=== PATIENT | female | born 1990 | race American Indian/Alaskan Native ===

== ENCOUNTER 2017-12-06 10:52 | Emergency (ER) | payer SELFPAY ==
[2017-12-06 11:47] LABS: Basophils % (Auto) 0.4 % (0.0-1.8); Eosinophils # (Auto) 0.1 K/mm3 (0.0-0.4); Eosinophils % (Auto) 2.4 % (0.0-4.3); Hematocrit 37.7 % (30.3-42.9); Hemoglobin 12.3 gm/dl (10.1-14.3); Lymphocytes # (Auto) 2.2 K/mm3 (1.2-5.4); Lymphocytes % (Auto) 36.1 % (13.4-35.0); Mean Corpuscular HGB Conc 33 % (30-34); Mean Corpuscular Hemoglobin 29 pg (28-32); Mean Corpuscular Volume 89 fl (79-97); Monocytes # (Auto) 0.5 K/mm3 (0.0-0.8); Monocytes % (Auto) 8.7 % (0.0-7.3); Platelet Count 225 K/mm3 (140-440); Red Blood Count 4.23 M/mm3 (3.65-5.03); Red Cell Distribution Width 14.1 % (13.2-15.2)
[2017-12-06 11:55] LABS: BUN/Creatinine Ratio 15; Blood Urea Nitrogen 9 mg/dL (7-17); Calcium 9.2 mg/dL (8.4-10.2); Hemolysis Index 8
[2017-12-06 11:56] LABS: INR 0.97 (0.87-1.13); Partial Thromboplastin Time 33.7 Sec. (24.2-36.6)
--- NOTE | 2017-12-06 18:30 | Ultrasound Report ---
FINAL REPORT PROCEDURE: Transabdominal pelvic ultrasound with Doppler imaging. TECHNIQUE: Real-time transabdominal sonography in multiple planes of the pelvis was performed with image documentation. Grayscale, color flow Doppler imaging and velocity spectral waveform analysis of the ovaries was employed (duplex imaging). CPT 58421 and 97967 HISTORY: vaginal bleeding. Miscarriage November 19, 2017. Recently treated for infection. COMPARISON: Transvaginal pelvic ultrasound also performed today. FINDINGS: Report for this exam was generated using images from both the transabdominal scan performed as well as a transvaginal scan also performed today. Uterus is located in the midline measuring 6.9 x 3.6 x 4.1 centimeter. No uterine masses are seen. The endometrial stripe measures 9 millimeters. No fluid or masses are seen in the endometrial canal. No evidence of intrauterine . With Doppler imaging there is increased flow to the endometrium and the myometrium. I cannot exclude residual inflammation from recent miscarriage versus infection. No abscess is identified. Small amount of nonspecific free fluid is seen in the cul-de-sac. Right and left ovaries showed no abnormalities. Right ovary measures 2.4 x 2.2 x 2.3 centimeter. The left ovary measures 3.2 x 1.4 x 2.6 centimeter. No abnormal adnexal masses are seen. Arterial flows visualized in both ovaries with Doppler imaging. Venous flow was not documented. IMPRESSION: There is mild increased flow in the endometrium and myometrium with color Doppler imaging. Uterus otherwise is unremarkable. I cannot exclude residual inflammatory change from recent miscarriage versus infection. No abscess is seen. Uterus and endometrium otherwise are unremarkable. Small amount of nonspecific free fluid is present in the cul-de-sac. Uterus and adnexa otherwise are unremarkable.
--- NOTE | 2017-12-06 18:32 | Ultrasound Report ---
FINAL REPORT PROCEDURE: Transvaginal pelvic ultrasound with Doppler imaging. TECHNIQUE: Real-time transvaginal sonography in multiple planes of the pelvis was performed with image documentation. Grayscale, color flow Doppler imaging and velocity spectral waveform analysis of the ovaries was employed (duplex imaging). CPT 30939 and 36210 HISTORY: vaginal bleeding COMPARISON: Transabdominal pelvic ultrasound also performed today. FINDINGS: Report for this exam was generated using images from both the transabdominal scan performed as well as a transvaginal scan also performed today. Uterus is located in the midline measuring 6.9 x 3.6 x 4.1 centimeter. No uterine masses are seen. The endometrial stripe measures 9 millimeters. No fluid or masses are seen in the endometrial canal. No evidence of intrauterine . With Doppler imaging there is increased flow to the endometrium and the myometrium. I cannot exclude residual inflammation from recent miscarriage versus infection. No abscess is identified. Small amount of nonspecific free fluid is seen in the cul-de-sac. Right and left ovaries showed no abnormalities. Right ovary measures 2.4 x 2.2 x 2.3 centimeter. The left ovary measures 3.2 x 1.4 x 2.6 centimeter. No abnormal adnexal masses are seen. Arterial flows visualized in both ovaries with Doppler imaging. Venous flow was not documented. IMPRESSION: There is mild increased flow in the endometrium and myometrium with color Doppler imaging. Uterus otherwise is unremarkable. I cannot exclude residual inflammatory change from recent miscarriage versus infection. No abscess is seen. Uterus and endometrium otherwise are unremarkable. Small amount of nonspecific free fluid is present in the cul-de-sac. Uterus and adnexa otherwise are unremarkable.
[2017-12-06] MEDS ORDERED: NACL 0.9% 1000 ML 1,000 ML IV ONE (20:50)
[2017-12-06] MEDS ORDERED: MORPHINE IV ONE (20:50)
[2017-12-06] MEDS ORDERED: ZOFRAN IV ONE (20:50)
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
[2017-12-06] MEDS ORDERED: TORADOL IV ONE (21:12)
[2017-12-06 21:52] LABS: Bilirubin,Urine NEG (Negative); Blood,Urine NEG (Negative); Color,Urine Yellow (Yellow); Mucus,Urine FEW /HPF; Protein,Urine <15 mg/dL mg/dL (Negative); Urobilinogen,Urine < 2.0 mg/dL (<2.0)
--- NOTE | 2017-12-06 22:18 | Cat Scan Report ---
FINAL REPORT PROCEDURE: CT ANGIO CHEST TECHNIQUE: Computerized tomographic angiography of the chest was performed during the IV injection of iodinated nonionic contrast including image processing. The image data was postprocessed using 2-dimensional multiplanar reformatted (MPR) and 3-dimensional (MIP and/or volume rendered) techniques. HISTORY: cp, sob, hx of pe COMPARISON: No prior studies are available for comparison. FINDINGS: Pulmonary outflow tract, right and left main pulmonary arteries and their proximal branches: Clear, no filling defects seen to suggest pulmonary embolus. Pericardium: No evidence of pericardial effusion. Thoracic aorta: No evidence of aneurysmal dilatation or dissection. Coronary arteries: Are unremarkable. Mediastinum and hilar regions: Nonspecific subcentimeter lymph nodes are visualized. No pathologically enlarged lymph nodes or masses are identified. Soft tissue dense material seen in the anterior mediastinum conforming to the contours of the anterior mediastinum consistent with residual thymic tissue. Lung [place]: Clear Upper abdomen: No acute or focal abnormality is seeen. Other: No acute bone abnormalities are visualized. . IMPRESSION: Negative exam. No evidence of pulmonary embolus.
[2017-12-06 23:45] VITALS: BP 114/82
== END 2017-12-06 23:45 | disposition home or self-care (01) ==
LOC: ED 10:52
DX: N93.8 Other specified abnormal uterine and vaginal bleeding (principal); R07.89 Other chest pain; M79.605 Pain in left leg; J45.909 Unspecified asthma, uncomplicated; F43.10 Post-traumatic stress disorder, unspecified; Z87.891 Personal history of nicotine dependence; Z86.711 Personal history of pulmonary embolism; Z88.1 Allergy status to other antibiotic agents
CPT/HCPCS: 36415; 71275; 76830; 76856; 80048; 81001; 84484; 84703; 85025; 85379; 85610; 85730; 93005; 93010; 96361; 96374; 96375; 99284; J1885; J2270; J2405; J7030; Q9967

== ENCOUNTER 2017-12-07 00:35 | Emergency (ER) | payer OTHER ==
[2017-12-07 02:34] VITALS: BP 113/78
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
== END 2017-12-07 11:35 | disposition home or self-care (01) ==
LOC: ED 00:35
DX: M79.605 Pain in left leg (principal); R42 Dizziness and giddiness; F43.10 Post-traumatic stress disorder, unspecified; J45.909 Unspecified asthma, uncomplicated; F17.200 Nicotine dependence, unspecified, uncomplicated; Z86.718 Personal history of other venous thrombosis and embolism; Z86.711 Personal history of pulmonary embolism; Z88.1 Allergy status to other antibiotic agents; Z79.01 Long term (current) use of anticoagulants
CPT/HCPCS: 93005; 93010; 93970; 99282